=== PATIENT | female | born 1980 | race Caucasian/White ===

== ENCOUNTER 2017-09-20 08:54 | Emergency (ER) | payer MEDICAID ==
[~2017-09-20] VITALS: Ht 152.4 cm; Wt 67.0 kg
[~2017-09-20 08:54] MED LIST: ACET325T14 PO; ALPR1TAB2 PO; BUTA-5 PO; BUTA1CAP30 PO; BUTA1CAP57 PO; CLON2TAB PO; FERR325T18 PO; IBUP-1223 PO; LURA40TA PO; NICO-486 TD; OXYC-302 PO; OXYC-307 PO; PNV1TABL4 PO; PREN1TAB56 PO; SENN-25 PO; TEMA22.52 PO; ZOLP10TA PO
[2017-09-20 10:00] LABS: BASOPHILS # (AUTO) 0.05 x10^3/uL (0-0.1); BASOPHILS % (AUTO) 0 % (0-1); EOSINOPHILS # (AUTO) 0.18 x10^3/uL (0-0.4); EOSINOPHILS % (AUTO) 1 % (1-7); HCT (SEDRATE) 40.9 % (34.6-47.8); LYMPHOCYTES # (AUTO) 3.42 x10^3/uL (1-3.4); LYMPHOCYTES % (AUTO) 27 % (22-44); MD NO; MEAN CORPUSCULAR HEMOGLOBIN 30.4 pg (27.0-34.8); MEAN CORPUSCULAR HGB CONC 33.7 g/dL (32.4-35.8); MEAN CORPUSCULAR VOLUME 90.2 fL (80-100); MEAN PLATELET VOLUME 8.5 fL (7.4-10.4); MONOCYTES % (AUTO) 9 % (2-9); NEUTROPHILS # (AUTO) 8.08 x10^3/uL (1.8-6.8); NEUTROPHILS % (AUTO) 63 % (42-75); PLATELET COUNT 325 x10^3/uL (130-400); RED BLOOD COUNT 4.53 x10^6/uL (3.82-5.3); RED CELL DISTRIBUTION WIDTH 14.2 % (9.6-15.2)
[2017-09-20] MEDS ORDERED: ONDANSETRON ODT 4 MG ONE (10:00)
[2017-09-20] MEDS ORDERED: ONDANSETRON ODT 4 MG PO ONE (10:00)
[2017-09-20] MEDS ORDERED: IBUPROFEN 200 MG TABLET PO ONE (10:00)
[2017-09-20] MEDS ORDERED: IBUPROFEN 200 MG TABLET ONE (10:01)
[2017-09-20 10:07] LABS: ALANINE AMINOTRANSFERASE 16 U/L (12-78); ALBUMIN 3.4 g/dL (3.4-5.0); ANION GAP 9 mmol/L (5-15); CALCIUM 8.4 mg/dL (8.5-10.1); CHLORIDE 107 mmol/L (98-107); CREATININE 0.68 mg/dL (0.55-1.02)
[2017-09-20 10:10] LABS: ALKALINE PHOSPHATASE 100 U/L (45-117); BILIRUBIN,TOTAL 0.2 mg/dL (0.2-1.0); CREATINE KINASE, TOTAL 69 U/L (26-192); HIGH-SENSITIVITY CRP 0.85 mg/dL (0.02-0.30); TOTAL PROTEIN 7.1 g/dL (6.4-8.2)
[2017-09-20 10:32] LABS: SEDIMENTATION RATE 10 mm/hr (0-20)
[2017-09-20 11:04] VITALS: BP 128/68
== END 2017-09-20 11:06 | disposition home or self-care (01) ==
LOC: ED 10:04
DX: L03.114 Cellulitis of left upper limb (principal); M33.22 Polymyositis with myopathy; E03.9 Hypothyroidism, unspecified; E05.00 Thyrotoxicosis with diffuse goiter without thyrotoxic crisis or storm; G43.909 Migraine, unspecified, not intractable, without status migrainosus; F20.9 Schizophrenia, unspecified; F31.9 Bipolar disorder, unspecified
CPT/HCPCS: 36415; 73030; 80053; 80307; 82550; 83735; 85025; 85651; 86141; 99285; Q0162

== ENCOUNTER 2018-10-11 11:41 | Emergency (ER) | payer MEDICAID ==
[~2018-10-11] VITALS: Ht 152.4 cm; Wt 60.0 kg
--- NOTE | 2018-10-11 11:48 | NUR ---
BIB [facility] STATING SHE HAS ANXIETY AND DEPRESSION, WAS ADMITTED TO [facility] RECENTLY BUT WAS DISCHARGED WITHOUT MEDICATIONS. TODAY TEARY, SAD, CRYING. PT DENIES ANY SI PLANS .
[2018-10-11 13:34] VITALS: BP 126/75
== END 2018-10-11 13:36 | disposition home or self-care (01) ==
LOC: ED 12:04
DX: F41.1 Generalized anxiety disorder (principal); F20.9 Schizophrenia, unspecified; G43.909 Migraine, unspecified, not intractable, without status migrainosus; E03.9 Hypothyroidism, unspecified; F60.9 Personality disorder, unspecified; F31.9 Bipolar disorder, unspecified
CPT/HCPCS: 99284